=== PATIENT | female | born 2000 | race Caucasian/White ===

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

== ENCOUNTER 2021-04-07 17:00 | Emergency (ER) | payer OTHER ==
[~2021-04-07] VITALS: Wt 81.6 kg
[2021-04-07 17:04] VITALS: BP 115/74
[2021-04-07] MEDS ORDERED: PROVENTIL HFA6.7 GM INH (21:27)
[2021-04-07] MEDS ORDERED: IBUPROFEN600 MG PO (21:27)
[2021-04-07] MEDS ORDERED: TESSALON PERLE100 M1 PO (21:27)
== END 2021-04-07 21:41 | disposition home or self-care (01) ==
LOC: ED 17:00
DX: J20.8 Acute bronchitis due to other specified organisms (principal); Z79.899 Other long term (current) drug therapy

== ENCOUNTER 2022-05-09 20:57 | Emergency (ER) | payer OTHER ==
[~2022-05-09 20:57] MED LIST changes: +IBUPROFEN600 MG PO; +PROVENTIL HFA6.7 GM INH; +TESSALON PERLE100 M1 PO
[2022-05-09 21:10] VITALS: BP 121/85
[2022-05-09] MEDS ORDERED: AMOXICILLIN500 M2 PO (23:03)
== END 2022-05-09 23:05 | disposition home or self-care (01) ==
LOC: ED 20:57
DX: J02.9 Acute pharyngitis, unspecified (principal)

== ENCOUNTER 2022-12-05 00:22 | Emergency (ER) | payer OTHER ==
[~2022-12-05] VITALS: Ht 157.4 cm; Wt 77.1 kg
[~2022-12-05 00:22] MED LIST changes: +AMOXICILLIN500 M2 PO
[2022-12-05 00:41] VITALS: BP 127/72
[2022-12-05] MEDS ORDERED: Ondansetron4 MG PO (00:53)
== END 2022-12-05 01:39 | disposition home or self-care (01) ==
LOC: ED 00:22
DX: R11.2 Nausea with vomiting, unspecified (principal); R10.9 Unspecified abdominal pain

== ENCOUNTER 2023-02-15 02:29 | Emergency (ER) | payer OTHER ==
[~2023-02-15] VITALS: Ht 157.4 cm; Wt 77.1 kg
[~2023-02-15 02:29] MED LIST changes: +Ondansetron4 MG PO
[2023-02-15 02:39] VITALS: BP 131/61
[2023-02-15] MEDS ORDERED: ONDANSETRON4 MG SL (04:03)
== END 2023-02-15 04:11 | disposition home or self-care (01) ==
LOC: ED 02:29
DX: K52.9 Noninfective gastroenteritis and colitis, unspecified (principal); J45.909 Unspecified asthma, uncomplicated

== ENCOUNTER 2023-11-25 16:16 | Emergency (ER) | payer OTHER ==
[~2023-11-25] VITALS: Wt 81.6 kg
[~2023-11-25 16:16] MED LIST changes: +ONDANSETRON4 MG SL
[2023-11-25 18:23] LABS: BASO # 0.1 10*3/uL (0.0-0.1); BASO % 0.6 % (0.0-1.0); EOS # 0.3 10*3/uL (0.0-0.4); EOS % 3.4 % (1.0-4.0); HEMATOCRIT 42.5 % (37.0-47.0); LYMPH # 2.6 10*3/uL (1.3-4.4); LYMPH % 29.1 % (27.0-41.0); MEAN CELL VOLUME 86.7 fl (81.0-99.0); MEAN CORPUSCULAR HGB 27.3 pg (27.0-31.0); MEAN CORPUSCULAR HGB CONC 31.5 g/dl (33.0-37.0); MEAN PLATELET VOLUME 9.5 fl (9.6-12.3); MONO # 0.6 10*3/uL (0.1-1.0); MONO % 6.7 % (3.0-9.0); NEUT # 5.5 10*3/uL (2.3-7.9); NEUT % 60.1 % (47.0-73.0); PLATELET COUNT AUTOMATED 330 10*3/uL (130-400); RED CELL DISTRI WIDTH 13.2 % (0-14.5); WHITE BLOOD COUNT 9.1 10*3/uL (4.8-10.8)
[2023-11-25 18:35] LABS: ACT PARTIAL THROMBO TIME 28.4 SECONDS (20.0-32.1)
[2023-11-25 18:42] LABS: ALKALINE PHOSPHATASE 68 U/L (46-116); BUN 11 mg/dl (9-23); CHLORIDE 107 mmol/L (98-107); LIPASE 40 U/L (12-53); POTASSIUM 4.2 mmol/L (3.4-5.1); SGPT/ALT 17 U/L (5-49); TOTAL PROTEIN 7.3 gm/dL (6.0-8.0)
[2023-11-25 18:43] LABS: BETA-HCG, QUANT < 3.0 mIU/mL (3-10)
[2023-11-25] MEDS ORDERED: ANTIVERT25 M2 PO (20:21)
[2023-11-25 20:27] VITALS: BP 115/60
== END 2023-11-25 20:26 | disposition home or self-care (01) ==
LOC: ED 16:16
PROVIDERS: Emergency Medicine
DX: R42 Dizziness and giddiness (principal); J45.909 Unspecified asthma, uncomplicated; R10.2 Pelvic and perineal pain

== ENCOUNTER 2024-01-05 17:20 | Emergency (ER) | payer OTHER ==
[~2024-01-05] VITALS: Ht 157.4 cm; Wt 81.6 kg
[~2024-01-05 17:20] MED LIST changes: +ANTIVERT25 M2 PO
[2024-01-05 17:41] VITALS: BP 118/77
== END 2024-01-05 19:00 | disposition home or self-care (01) ==
LOC: ED 17:20
DX: A08.4 Viral intestinal infection, unspecified (principal); Z20.822 Contact with and (suspected) exposure to COVID-19; J45.909 Unspecified asthma, uncomplicated; R11.2 Nausea with vomiting, unspecified

== ENCOUNTER 2024-05-17 22:02 | Emergency (ER) | payer OTHER ==
[~2024-05-17] VITALS: Ht 157.4 cm; Wt 81.6 kg
[2024-05-17 22:11] VITALS: BP 148/79
[2024-05-17] MEDS ORDERED: Pantoprazole Sodium 40 MG VIAL IV ONE (22:20)
[2024-05-17] MEDS ORDERED: Ondansetron Hydrochloride 4 MG/2 ML VIAL IV ONE (22:20)
[2024-05-17] MEDS ORDERED: SODIUM CHLORIDE 0.9% 1,000 ML IV ONE (22:20)
[2024-05-17] MEDS ORDERED: Water, Sterile 10 ML VIAL ONE (22:35)
[2024-05-17 22:40] LABS: BASO # 0.1 10*3/uL (0.0-0.1); BASO % 0.6 % (0.0-1.0); EOS # 0.3 10*3/uL (0.0-0.4); EOS % 3.5 % (1.0-4.0); HEMATOCRIT 38.4 % (37.0-47.0); LYMPH # 2.2 10*3/uL (1.3-4.4); LYMPH % 26.8 % (27.0-41.0); MEAN CELL VOLUME 85.7 fl (81.0-99.0); MEAN CORPUSCULAR HGB 28.3 pg (27.0-31.0); MEAN CORPUSCULAR HGB CONC 33.1 g/dl (33.0-37.0); MEAN PLATELET VOLUME 9.6 fl (9.6-12.3); MONO # 0.5 10*3/uL (0.1-1.0); MONO % 6.5 % (3.0-9.0); NEUT # 5.2 10*3/uL (2.3-7.9); NEUT % 62.4 % (47.0-73.0); PLATELET COUNT AUTOMATED 311 10*3/uL (130-400); RED BLOOD COUNT 4.48 10*6/uL (4.10-5.10); RED CELL DISTRI WIDTH 13.1 % (0-14.5); WHITE BLOOD COUNT 8.3 10*3/uL (4.8-10.8)
[2024-05-17 22:59] LABS: BUN 11 mg/dl (9-23); CHLORIDE 109 mmol/L (98-107)
[2024-05-17] MEDS ORDERED: OMEPRAZOLE40 MG PO (23:31)
[2024-05-17] MEDS ORDERED: BENZONATATE100 M1 PO (23:39)
== END 2024-05-17 23:40 | disposition home or self-care (01) ==
LOC: ED 22:02
PROVIDERS: Nurse Practitioner Family
DX: B34.9 Viral infection, unspecified (principal); Z20.822 Contact with and (suspected) exposure to COVID-19; K21.9 Gastro-esophageal reflux disease without esophagitis; R19.7 Diarrhea, unspecified; R11.2 Nausea with vomiting, unspecified

== ENCOUNTER 2024-11-05 15:53 | Emergency (ER) | payer OTHER ==
[~2024-11-05] VITALS: Ht 157.4 cm; Wt 81.6 kg
[~2024-11-05 15:53] MED LIST changes: +BENZONATATE100 M1 PO; +OMEPRAZOLE40 MG PO
[2024-11-05 16:39] VITALS: BP 109/56
[2024-11-05 17:09] LABS: HEMATOCRIT 38.5 % (37.0-47.0); MEAN CELL VOLUME 85.6 fl (81.0-99.0); MEAN CORPUSCULAR HGB 27.8 pg (27.0-31.0); MEAN CORPUSCULAR HGB CONC 32.5 g/dl (33.0-37.0); MEAN PLATELET VOLUME 8.9 fl (9.6-12.3); PLATELET COUNT AUTOMATED 313 10*3/uL (130-400); RED CELL DISTRI WIDTH 13.2 % (0-14.5); WHITE BLOOD COUNT 7.9 10*3/uL (4.8-10.8)
[2024-11-05 17:10] LABS: MANUAL DIFF REFLEX YES
[2024-11-05 17:28] LABS: BUN 10 mg/dl (9-23); CHLORIDE 105 mmol/L (98-107); POTASSIUM 3.7 mmol/L (3.4-5.1)
[2024-11-05 17:33] LABS: PLATELET SUFFICIENCY NORMAL (NORMAL); TOTAL CELLS COUNTED 100 #CELLS
[2024-11-05] MEDS ORDERED: AMOX-CLAV 875-1 EACH PO (17:38)
[2024-11-05] MEDS ORDERED: Amoxicillin/Clavulanate Pota 875 MG TAB PO ONE (17:40)
== END 2024-11-05 18:06 | disposition home or self-care (01) ==
LOC: ED 15:53
PROVIDERS: Nurse Practitioner Family
DX: J02.0 Streptococcal pharyngitis (principal); Z20.822 Contact with and (suspected) exposure to COVID-19; J45.909 Unspecified asthma, uncomplicated

== ENCOUNTER 2025-01-01 09:05 | Emergency (ER) | payer OTHER ==
[~2025-01-01] VITALS: Ht 157.4 cm; Wt 81.6 kg
[~2025-01-01 09:05] MED LIST changes: +AMOX-CLAV 875-1 EACH PO
[2025-01-01 09:13] VITALS: BP 128/100
[2025-01-01] MEDS ORDERED: AVPAK AZITHROM250 MG PO (11:39)
== END 2025-01-01 11:49 | disposition home or self-care (01) ==
LOC: ED 09:05
DX: J18.9 Pneumonia, unspecified organism (principal); J45.909 Unspecified asthma, uncomplicated; Z20.822 Contact with and (suspected) exposure to COVID-19

== ENCOUNTER 2025-03-26 14:58 | Emergency (ER) | payer OTHER ==
[~2025-03-26] VITALS: Ht 157.4 cm; Wt 81.6 kg
[~2025-03-26 14:58] MED LIST changes: +AVPAK AZITHROM250 MG PO
[2025-03-26 15:03] VITALS: BP 114/66
[2025-03-26] MEDS ORDERED: MEDROL DOSEPAK4 MG PO (15:21)
[2025-03-26 15:45] LABS: BILIRUBIN Negative (Negative); BLOOD Negative (Negative); CLARITY Clear (Clear); COLOR Yellow (Yellow); GLUCOSE Negative (Negative); KETONE Negative (Negative); LEUKO ESTERASE Negative (Negative); NITRITE Negative (Negative); UROBILINOGEN 0.2 E.U./dl (0.0-1.0)
[2025-03-26 16:09] LABS: BACTERIA TRACE; WBC 0-2 wbc/hpf (0-5)
== END 2025-03-26 16:25 | disposition home or self-care (01) ==
LOC: ED 14:58
PROVIDERS: Physician Assistant Medical
DX: J02.8 Acute pharyngitis due to other specified organisms (principal); B97.89 Other viral agents as the cause of diseases classified elsewhere; R35.0 Frequency of micturition; J45.909 Unspecified asthma, uncomplicated; Z79.899 Other long term (current) drug therapy

== ENCOUNTER 2025-07-10 09:16 | Emergency (ER) | payer OTHER ==
[~2025-07-10] VITALS: Ht 157.4 cm; Wt 81.6 kg
[~2025-07-10 09:16] MED LIST changes: +MEDROL DOSEPAK4 MG PO
[2025-07-10 09:37] VITALS: BP 111/67
[2025-07-10] MEDS ORDERED: Ondansetron Hydrochloride 4 MG/2 ML VIAL IV ONE (10:05)
[2025-07-10] MEDS ORDERED: SODIUM CHLORIDE 0.9% 500 ML IV ONE (10:05)
[2025-07-10 10:12] LABS: BASO # 0.1 10*3/uL (0.0-0.1); BASO % 0.7 % (0.0-1.0); EOS # 0.1 10*3/uL (0.0-0.4); EOS % 1.5 % (1.0-4.0); MEAN CELL VOLUME 86.1 fl (81.0-99.0); MEAN CORPUSCULAR HGB 28.4 pg (27.0-31.0); MEAN PLATELET VOLUME 9.4 fl (9.6-12.3); MONO # 0.4 10*3/uL (0.1-1.0); MONO % 5.3 % (3.0-9.0); NEUT # 5.1 10*3/uL (2.3-7.9); NEUT % 70.5 % (47.0-73.0); NUCLEATED RED BLOOD CELL 0.0 % (0.0-0.0); NUCLEATED RED BLOOD CELL 0.0 10*3/uL (0.0-0.0); PLATELET COUNT AUTOMATED 319 10*3/uL (130-400); RED CELL DISTRI WIDTH 13.0 % (0-14.5)
[2025-07-10 10:36] LABS: BUN 10 mg/dl (9-23); SGPT/ALT 14 U/L (5-49)
[2025-07-10 10:55] LABS: BILIRUBIN Negative (Negative); BLOOD Negative (Negative); CLARITY Turbid (Clear); COLOR Yellow (Yellow); KETONE Trace (Negative); LEUKO ESTERASE Trace (Negative); NITRITE Negative (Negative); PH 5.0 (4.5-8.0); SPECIFIC GRAVITY 1.025 (1.001-1.030); UROBILINOGEN 0.2 E.U./dl (0.0-1.0)
[2025-07-10 11:19] LABS: BACTERIA 3+
[2025-07-10] MEDS ORDERED: Ondansetron4 MG PO (11:35)
[2025-07-10] MEDS ORDERED: REGLAN10 M1 PO (11:35)
== END 2025-07-10 11:39 | disposition home or self-care (01) ==
LOC: ED 09:16
PROVIDERS: Emergency Medicine
DX: A08.4 Viral intestinal infection, unspecified (principal); J45.909 Unspecified asthma, uncomplicated; Z79.899 Other long term (current) drug therapy

== ENCOUNTER 2025-09-05 17:59 | Emergency (ER) | payer OTHER ==
[~2025-09-05] VITALS: Ht 157.4 cm; Wt 81.6 kg
[~2025-09-05 17:59] MED LIST changes: +REGLAN10 M1 PO
[2025-09-05 18:08] VITALS: BP 114/87
== END 2025-09-05 19:29 | disposition home or self-care (01) ==
LOC: ED 17:59
DX: Z32.01 Encounter for pregnancy test, result positive (principal); J45.909 Unspecified asthma, uncomplicated; R10.20 Pelvic and perineal pain unspecified side

== ENCOUNTER 2025-09-12 07:25 | Emergency (ER) | payer OTHER ==
[~2025-09-12] VITALS: Ht 157.4 cm; Wt 81.6 kg
[2025-09-12 07:34] VITALS: BP 112/52
[2025-09-12 07:57] LABS: BILIRUBIN Negative (Negative); BLOOD 3+ (Negative); CLARITY Cloudy (Clear); COLOR Orange (Yellow); KETONE Negative (Negative); LEUKO ESTERASE 1+ (Negative); NITRITE Negative (Negative); PH 6.5 (4.5-8.0); SPECIFIC GRAVITY 1.015 (1.001-1.030); UROBILINOGEN 0.2 E.U./dl (0.0-1.0)
[2025-09-12 08:03] LABS: BASO # 0.0 10*3/uL (0.0-0.1); BASO % 0.6 % (0.0-1.0); EOS # 0.1 10*3/uL (0.0-0.4); EOS % 0.8 % (1.0-4.0); MEAN CELL VOLUME 89.2 fl (81.0-99.0); MEAN CORPUSCULAR HGB 28.6 pg (27.0-31.0); MEAN PLATELET VOLUME 9.4 fl (9.6-12.3); MONO # 0.5 10*3/uL (0.1-1.0); MONO % 6.5 % (3.0-9.0); NEUT # 4.8 10*3/uL (2.3-7.9); NEUT % 67.4 % (47.0-73.0); NUCLEATED RED BLOOD CELL 0.0 % (0.0-0.0); NUCLEATED RED BLOOD CELL 0.0 10*3/uL (0.0-0.0); PLATELET COUNT AUTOMATED 292 10*3/uL (130-400); RED CELL DISTRI WIDTH 13.4 % (0-14.5)
[2025-09-12 08:11] LABS: BACTERIA 3+; EPITHELIAL CELLS 31-40
[2025-09-12 08:24] LABS: BETA-HCG, QUANT 241.0 mIU/mL (3-10); BUN 7 mg/dl (9-23)
[2025-09-12] MEDS ORDERED: AMOX-CLAV 875-1 EACH PO (11:49)
[2025-09-12] MEDS ORDERED: GOOD SENSE PAI500 M1 PO (11:49)
== END 2025-09-12 12:02 | disposition home or self-care (01) ==
LOC: ED 07:25
PROVIDERS: Emergency Medicine
DX: O46.91 Antepartum hemorrhage, unspecified, first trimester (principal); O23.41 Unspecified infection of urinary tract in pregnancy, first trimester; N39.0 Urinary tract infection, site not specified; R10.20 Pelvic and perineal pain unspecified side; Z3A.01 Less than 8 weeks gestation of pregnancy

== ENCOUNTER → 2025-09-14 | Outpatient (CLI) | payer OTHER ==
[~2025-09-14] MED LIST changes: +GOOD SENSE PAI500 M1 PO
== END | disposition home or self-care (01) ==
LOC: LAB 13:38
PROVIDERS: ATTEND Obstetrics & Gynecology
DX: C03.9 Malignant neoplasm of gum, unspecified (principal)

== ENCOUNTER 2025-10-26 11:41 | Emergency (ER) | payer OTHER ==
[~2025-10-26] VITALS: Ht 157.4 cm; Wt 90.7 kg
[2025-10-26 11:51] VITALS: BP 129/68
[2025-10-26 12:25] LABS: BILIRUBIN Negative (Negative); BLOOD Negative (Negative); CLARITY Clear (Clear); COLOR Yellow (Yellow); KETONE Negative (Negative); LEUKO ESTERASE Negative (Negative); NITRITE Negative (Negative); PH 5.0 (4.5-8.0); SPECIFIC GRAVITY 1.015 (1.001-1.030); UROBILINOGEN 0.2 E.U./dl (0.0-1.0)
[2025-10-26 12:33] LABS: BACTERIA 2+; RBC 0-2 rbc/hpf (0-2); WBC 0-2 wbc/hpf (0-5)
== END 2025-10-26 13:18 | disposition home or self-care (01) ==
LOC: ED 11:41
PROVIDERS: Nurse Practitioner Family
DX: Z32.01 Encounter for pregnancy test, result positive (principal)

== ENCOUNTER → 2025-11-02 | Outpatient (CLI) | payer OTHER ==
[2025-11-02 13:44] LABS: BASO # 0.1 10*3/uL (0.0-0.1); BASO % 0.6 % (0.0-1.0); EOS # 0.1 10*3/uL (0.0-0.4); EOS % 0.9 % (1.0-4.0); MEAN CELL VOLUME 87.5 fl (81.0-99.0); MEAN CORPUSCULAR HGB 28.1 pg (27.0-31.0); MEAN PLATELET VOLUME 9.7 fl (9.6-12.3); MONO # 0.6 10*3/uL (0.1-1.0); MONO % 7.3 % (3.0-9.0); NEUT # 5.3 10*3/uL (2.3-7.9); NEUT % 62.5 % (47.0-73.0); NUCLEATED RED BLOOD CELL 0.0 % (0.0-0.0); NUCLEATED RED BLOOD CELL 0.0 10*3/uL (0.0-0.0); PLATELET COUNT AUTOMATED 302 10*3/uL (130-400); RED CELL DISTRI WIDTH 13.0 % (0-14.5)
[2025-11-02 13:52] LABS: BILIRUBIN Negative (Negative); BLOOD Negative (Negative); CLARITY Clear (Clear); COLOR Yellow (Yellow); KETONE Negative (Negative); LEUKO ESTERASE Negative (Negative); NITRITE Negative (Negative); PH 5.0 (4.5-8.0); SPECIFIC GRAVITY 1.010 (1.001-1.030); UROBILINOGEN 0.2 E.U./dl (0.0-1.0)
[2025-11-02 14:16] LABS: BACTERIA TRACE; WBC 0-2 wbc/hpf (0-5)
== END | disposition home or self-care (01) ==
LOC: LAB 13:07
PROVIDERS: ATTEND Obstetrics & Gynecology
DX: Z33.1 Pregnant state, incidental (principal)

== ENCOUNTER → 2025-11-05 | Outpatient (CLI) | payer OTHER ==
[2025-11-05 17:28] LABS: BASO # 0.0 10*3/uL (0.0-0.1); BASO % 0.5 % (0.0-1.0); EOS # 0.1 10*3/uL (0.0-0.4); EOS % 0.8 % (1.0-4.0); MEAN CELL VOLUME 86.6 fl (81.0-99.0); MEAN CORPUSCULAR HGB 28.3 pg (27.0-31.0); MEAN PLATELET VOLUME 9.2 fl (9.6-12.3); MONO # 0.4 10*3/uL (0.1-1.0); MONO % 5.3 % (3.0-9.0); NEUT # 5.0 10*3/uL (2.3-7.9); NEUT % 62.9 % (47.0-73.0); NUCLEATED RED BLOOD CELL 0.0 % (0.0-0.0); NUCLEATED RED BLOOD CELL 0.0 10*3/uL (0.0-0.0); PLATELET COUNT AUTOMATED 301 10*3/uL (130-400); RED CELL DISTRI WIDTH 12.9 % (0-14.5)
[2025-11-05 17:37] LABS: BILIRUBIN Negative (Negative); BLOOD Negative (Negative); CLARITY Clear (Clear); COLOR Yellow (Yellow); KETONE Negative (Negative); LEUKO ESTERASE Negative (Negative); NITRITE Negative (Negative); PH 5.0 (4.5-8.0); SPECIFIC GRAVITY <= 1.005 (1.001-1.030); UROBILINOGEN 0.2 E.U./dl (0.0-1.0)
[2025-11-05 18:00] LABS: BACTERIA 1+; RBC 0-2 rbc/hpf (0-2); WBC 0-2 wbc/hpf (0-5)
== END | disposition home or self-care (01) ==
LOC: LAB 16:58
PROVIDERS: ATTEND Obstetrics & Gynecology
DX: Z33.1 Pregnant state, incidental (principal)

== ENCOUNTER → 2025-11-09 | Outpatient (CLI) | payer OTHER | END | disposition home or self-care (01) | LOC: US 12:54 | PROVIDERS: ATTEND Obstetrics & Gynecology | DX: Z33.1 Pregnant state, incidental (principal) ==